=== PATIENT | female | born 1980 | race Caucasian/White ===

== ENCOUNTER 2017-07-13 11:47 | Emergency (ER) | payer MEDICARE ==
--- NOTE | 2017-07-13 12:07 | ER Document Report ---
ED Medical Screen (RME) - General Chief Complaint: Trouble Walking Stated Complaint: MS COMPLICATIONS Time Seen by Provider: 07/13/17 11:55 Notes: This 37-year-old female patient comes emergency room with a flare of her MS. She moved down here from [place] in May of this year. She has not established with a neurologist or primary care provider. She has not run out of her medications yet. She has had trouble walking the past 2 days. She is also but having problems with her emotions and her "nerves". 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 Shortly afterwards she stopped being so emotional and was able to speak. She did call her neurologist in [place] and was told to go to the emergency room where there was a neurologist vocational coordinator. I have greeted and performed a rapid initial assessment of this patient. A comprehensive ED assessment and evaluation of the patient, analysis of test results and completion of the medical decision making process will be conducted by additional ED providers. TRAVEL OUTSIDE OF THE [place] IN LAST 30 DAYS: No - Related Data Allergies/Adverse Reactions: No Known Allergies Allergy (Verified 07/13/17 11:52) Physical Exam - Vital signs Vitals: Temp Pulse Resp BP Pulse Ox 98.3 F 79 18 119/78 99 07/13/17 11:53 07/13/17 11:53 07/13/17 11:53 07/13/17 11:53 07/13/17 11:53 Course - Vital Signs Vital signs: Temp Pulse Resp BP Pulse Ox 98.3 F 79 18 119/78 99 07/13/17 11:53 07/13/17 11:53 07/13/17 11:53 07/13/17 11:53 07/13/17 11:53
--- NOTE | 2017-07-13 12:39 | ER Document Report ---
ED General - General Chief Complaint: Trouble Walking Stated Complaint: MS COMPLICATIONS Time Seen by Provider: 07/13/17 11:55 Mode of Arrival: Ambulatory Information source: Patient Notes: Patient presents emergency department with reports of MS since 2013. Patient recently moved to the [facility] from [place]. She has not connected with the neurologist yet. She reports her symptoms have been worsening for the past month. She reports she stumbles and falls a lot. Never hit her head, Denies change in LOC. Her father at the bedside reports she is acting normal. Patient does have difficulty speaking. Reports she cannot read her own handwriting any longer. She has been on several different treatments for this MS. She gets very tearful when discussing how her last neurologist said that there is nothing else they could do. She reports in [place] she would occasionally go in to have steroid infusions. Patient does have an appointment July 24 with Tonja Cloud and is hoping to connect with a neurologist at that time. She denies fever vomiting diarrhea. Reports she is having urinary frequency recently. TRAVEL OUTSIDE OF THE [place] IN LAST 30 DAYS: No - HPI Onset: Other Onset/Duration: Persistent Quality of pain: No pain Associated symptoms: None Exacerbated by: Denies Relieved by: Denies Similar symptoms previously: Yes Recently seen / treated by doctor: No - Related Data Allergies/Adverse Reactions: No Known Allergies Allergy (Verified 07/13/17 11:52) Home Medications: From [facility] Pharmacy: Oxybutin [facility] 10mg Daily. Baclofen 10mg Daily Past Medical History - General Information source: Patient Last Menstrual Period: 07/10/17 - Social History Smoking Status: Current Every Day Smoker Cigarette use (# per day): Yes Chew tobacco use (# tins/day): No Frequency of alcohol use: None Drug Abuse: Marijuana - MEDICAL Lives with: Family Family History: Other - family hx of MS Patient has suicidal ideation: No Patient has homicidal ideation: No - Medical History Medical History: Other - MS Renal/ Medical History: Denies: Hx Peritoneal Dialysis Past Surgical History: Reports: Hx Orthopedic Surgery Review of Systems - Review of Systems Notes: Review HPI for review of systems., All other systems negative Physical Exam - Vital signs Vitals: Temp Pulse Resp BP Pulse Ox 98.3 F 79 18 119/78 99 07/13/17 11:53 07/13/17 11:53 07/13/17 11:53 07/13/17 11:53 07/13/17 11:53 - Notes Notes: PHYSICAL EXAMINATION: GENERAL: Well-appearing nontoxic looking, tearful HEAD: Atraumatic, normocephalic. EYES: Pupils equal round and reactive to light, extraocular movements intact, sclera anicteric, conjunctiva are normal. ENT: nares patent, opens mouth wide Moist mucous membranes. NECK: Normal range of motion, supple without lymphadenopathy LUNGS: CTAB and equal. No wheezes rales or rhonchi. HEART: Regular rate and rhythm without murmurs ABDOMEN: Soft, no tenderness. No guarding, no rebound EXTREMITIES: Normal range of motion, no pitting edema. No cyanosis. left lower extremity slightly weaker than right Upper extremities strong, equal NEUROLOGICAL: Cranial nerves grossly intact. Normal sensory/motor exams. PSYCH: Normal mood, normal affect. SKIN: Warm, Dry, normal turgor, no rashes or lesions noted Course - Re-evaluation Re-evalutation: 07/13/17 Patient has an appointment with Christie Cloud July [address] live consulted, went in to assess patient. agrees with plan for steroids, neurology. Patient agrees with plan also. No apparent distress ambulates around the room without problems. Father with patient agrees to plan. - Vital Signs Vital signs: Temp Pulse Resp BP Pulse Ox 98.6 F 61 16 108/65 99 07/13/17 14:44 07/13/17 14:44 07/13/17 14:44 07/13/17 14:44 07/13/17 14:44 Discharge - Discharge Clinical Impression: Multiple sclerosis Condition: Stable Disposition: HOME, SELF-CARE Instructions: Neurologist, Steroid Medication Injection, Steroid Medication Additional Instructions: *You have been evaluated for Multiple sclerosis *Take medication as prescribed *Follow up with Tonja Cloud as scheduled July 24 *Return to ED for worsening condition, changes, needs *Return to ED if not better in 24 hours Prescriptions: Prednisone 60 mg PO DAILY #30 tablet
[2017-07-13 12:48] LABS: AMORPHOUS SEDIMENT,URINE TRACE /HPF; APPEARANCE,URINE CLOUDY; BILIRUBIN,URINE NEGATIVE (NEGATIVE); COLOR,URINE YELLOW; GLUCOSE, URINE NEGATIVE (NEGATIVE); KETONES,URINE NEGATIVE (NEGATIVE); LEUKOCYTE ESTERASE,URINE NEGATIVE (NEGATIVE); NITRITE,URINE NEGATIVE (NEGATIVE); PROTEIN,URINE NEGATIVE (NEGATIVE); UROBILINOGEN,URINE NEGATIVE mg/dL (<2.0)
[2017-07-13] MEDS ORDERED: METHYLPREDNISOLONE INJ 125 MG/2 ML SDV IV ONE (14:04)
[2017-07-13 14:50] VITALS: BP 108/65
== END 2017-07-13 14:47 | disposition home or self-care (01) ==
LOC: ER 11:47
DX: G35 Multiple sclerosis (principal); F80.89 Other developmental disorders of speech and language; R35.0 Frequency of micturition; F17.210 Nicotine dependence, cigarettes, uncomplicated; Z79.899 Other long term (current) drug therapy
CPT/HCPCS: 99283; 96374; 81025; 81001; J2930